=== PATIENT | male | born 1980 | race African-American/Black ===

== ENCOUNTER 2016-09-10 14:13 | Emergency (ER) | payer SELFPAY ==
[~2016-09-10] VITALS: Ht 180.3 cm; Wt 86.0 kg
[2016-09-10 14:14] VITALS: BP 112/64; PULSE 94; RESP 20; TEMP 98.4; O2SAT 99
--- NOTE | 2016-09-10 15:17 | PD ---
HPI Chief Complaint: Psychiatric Symptoms Time Seen by Provider: 15:11 Travel History International Travel<30 days: No Contact w/Intl Traveler<30days: No Traveled to known affect area: No History of Present Illness HPI 36-year-old black male presents to emergency department on a voluntary basis for psychological evaluation. The patient states that he has a history of mental illness. He was just released from incarceration 2 days ago after a period of time for battery. He states that he was supposed to follow up with [facility] for his mental health but has missed his appointment last month during his incarceration. He does not know what medications he supposed to be taking. He states that he has not taken medicine in some time. He claims that he has had ADHD as a child and had been on Ritalin. The patient also reports twisting his left knee earlier today. He admits to having suicidal thoughts. He alleges that he had taken a friend's gun and had considered shooting himself. He denies any homicidal ideation. No toxic ingestions. He does smoke cigarettes and drink alcohol on occasion. He states that he has not done any drugs since after being incarcerated. He is currently homeless. He has been on the streets since being released from half-way 2 days ago. PFSH Past Medical History Narrative Medical Psych disorder Hx Anticoagulant Therapy: No Cardiovascular Problems: No Chemotherapy: No Cerebrovascular Accident: No Diabetes: No Respiratory: No Tetanus Vaccination: < 5 Years Past Surgical History Surgical History: No Previous Surgery Social History Alcohol Use: Yes Tobacco Use: Yes Substance Use: No (not in the last month.) Allergies-Medications (Allergen,Severity, Reaction): Coded Allergies: No Known Allergies (Unverified , 09/10/16) Reported Meds & Prescriptions Reported Meds & Active Scripts Active No Active Prescriptions or Reported Medications Review of Systems Except as stated in HPI: all other systems reviewed are Neg Musculoskeletal: Positive: Arthralgias, Limited ROM, Pain, No: Myalgias, Weakness, Edema Psychiatric: Positive: Depression, Suicidal Ideations, Mood Disorder, No: Anxiety, Disorder of Thought, Substance Abuse, Homicidal Ideation Physical Exam Narrative GENERAL: Well-nourished, well-developed patient. SKIN: Warm and dry. HEAD: Normocephalic and atraumatic. EYES: No scleral icterus. No injection or drainage. ENT: No nasal drainage noted. Mucous membranes pink. Airway patent. NECK: Supple, trachea midline. Moves head freely without obvious discomfort. CARDIOVASCULAR: Regular rate and rhythm without murmurs, gallops, or rubs. RESPIRATORY: Breath sounds equal bilaterally. No accessory muscle use. GASTROINTESTINAL: Abdomen soft, non-tender, nondistended. EXTREMITIES: No cyanosis or edema. Examination of the left lower extremity reveals soft tissue tenderness to the left knee. There is no joint effusion. He is able to fully extend and flex his knee. No medial or lateral collateral ligament instability. No anterior posterior draw. The patient is up and ambulatory with a mildly antalgic gait. The right lower extremity as well as upper extremities are unremarkable. BACK: Nontender without obvious deformity. No CVA tenderness. NEURO: Patient is alert and oriented. no sensorimotor deficits. Nonfocal. Normal speech. PSYCH: No delusions. No auditory or visual hallucinations. Data Data Last Documented VS Vital Signs Date Time Temp Pulse Resp B/P Pulse Ox O2 Delivery O2 Flow Rate FiO2 09/10/16 15:54 79 18 120/68 100 Room Air 09/10/16 14:14 98.4 Orders Complete Blood Count With Diff (09/10/16 15:11) Comprehensive Metabolic Panel (09/10/16 15:11) Psych Screen (09/10/16 15:11) Drug Screen, Random Urine (09/10/16 15:11) Alcohol (Ethanol) (09/10/16 15:11) Salicylates (Aspirin) (09/10/16 15:11) Tylenol (Acetaminophen) (09/10/16 15:11) Ibuprofen (Motrin) (09/10/16 15:30) Labs Laboratory Tests Test 09/10/16 09/10/16 15:45 15:50 Urine Opiates Screen NEG Urine Barbiturates Screen NEG Urine Amphetamines Screen NEG Urine Benzodiazepines Screen NEG Urine Cocaine Screen POS Urine Cannabinoids Screen NEG White Blood Count 4.3 TH/MM3 Red Blood Count 4.38 MIL/MM3 Hemoglobin 13.5 GM/DL Hematocrit 40.3 % Mean Corpuscular Volume 92.0 FL Mean Corpuscular Hemoglobin 30.8 PG Mean Corpuscular Hemoglobin 33.5 % Concent Red Cell Distribution Width 14.5 % Platelet Count 203 TH/MM3 Mean Platelet Volume 9.1 FL Neutrophils (%) (Auto) 44.4 % Lymphocytes (%) (Auto) 39.5 % Monocytes (%) (Auto) 15.1 % Eosinophils (%) (Auto) 0.8 % Basophils (%) (Auto) 0.2 % Neutrophils # (Auto) 1.9 TH/MM3 Lymphocytes # (Auto) 1.7 TH/MM3 Monocytes # (Auto) 0.6 TH/MM3 Eosinophils # (Auto) 0.0 TH/MM3 Basophils # (Auto) 0.0 TH/MM3 CBC Comment DIFF FINAL Differential Comment Sodium Level 139 MEQ/L Potassium Level 4.1 MEQ/L Chloride Level 104 MEQ/L Carbon Dioxide Level 28.6 MEQ/L Anion Gap 6 MEQ/L Blood Urea Nitrogen 17 MG/DL Creatinine 1.07 MG/DL Estimat Glomerular Filtration 96 ML/MIN Rate Random Glucose 76 MG/DL Calcium Level 8.9 MG/DL Total Bilirubin 0.5 MG/DL Aspartate Amino Transf 29 U/L (AST/SGOT) Alanine Aminotransferase 37 U/L (ALT/SGPT) Alkaline Phosphatase 160 U/L Total Protein 8.0 GM/DL Albumin 3.9 GM/DL Salicylates Level LESS THAN 1.7 MG/DL Acetaminophen Level LESS THAN 2.0 MCG/ML Ethyl Alcohol Level LESS THAN 3 MG/DL MDM Medical Decision Making Medical Screen Exam Complete: Yes Emergency Medical Condition: Yes Medical Record Reviewed: Yes Interpretation(s) Laboratory Tests Test 09/10/16 09/10/16 15:45 15:50 Urine Opiates Screen NEG Urine Barbiturates Screen NEG Urine Amphetamines Screen NEG Urine Benzodiazepines Screen NEG Urine Cocaine Screen POS Urine Cannabinoids Screen NEG White Blood Count 4.3 TH/MM3 Red Blood Count 4.38 MIL/MM3 Hemoglobin 13.5 GM/DL Hematocrit 40.3 % Mean Corpuscular Volume 92.0 FL Mean Corpuscular Hemoglobin 30.8 PG Mean Corpuscular Hemoglobin 33.5 % Concent Red Cell Distribution Width 14.5 % Platelet Count 203 TH/MM3 Mean Platelet Volume 9.1 FL Neutrophils (%) (Auto) 44.4 % Lymphocytes (%) (Auto) 39.5 % Monocytes (%) (Auto) 15.1 % Eosinophils (%) (Auto) 0.8 % Basophils (%) (Auto) 0.2 % Neutrophils # (Auto) 1.9 TH/MM3 Lymphocytes # (Auto) 1.7 TH/MM3 Monocytes # (Auto) 0.6 TH/MM3 Eosinophils # (Auto) 0.0 TH/MM3 Basophils # (Auto) 0.0 TH/MM3 CBC Comment DIFF FINAL Differential Comment Sodium Level 139 MEQ/L Potassium Level 4.1 MEQ/L Chloride Level 104 MEQ/L Carbon Dioxide Level 28.6 MEQ/L Anion Gap 6 MEQ/L Blood Urea Nitrogen 17 MG/DL Creatinine 1.07 MG/DL Estimat Glomerular Filtration 96 ML/MIN Rate Random Glucose 76 MG/DL Calcium Level 8.9 MG/DL Total Bilirubin 0.5 MG/DL Aspartate Amino Transf 29 U/L (AST/SGOT) Alanine Aminotransferase 37 U/L (ALT/SGPT) Alkaline Phosphatase 160 U/L Total Protein 8.0 GM/DL Albumin 3.9 GM/DL Salicylates Level LESS THAN 1.7 MG/DL Acetaminophen Level LESS THAN 2.0 MCG/ML Ethyl Alcohol Level LESS THAN 3 MG/DL Differential Diagnosis MDM: High Differential diagnoses: Schizophrenia, schizoaffective disorder, bipolar, anxiety, depression, adjustment reaction, mood disorder NOS, ODD, depressive disorder NOS, dementia, dementia with agitation, psychosis NOS, substance induced mood disorder, intermittent explosive disorder, Asperger syndrome, infection,electrolyte abnormality, left knee sprain, malingering. Narrative Course Mental health screening discussed with the patient. Psychiatric screen ordered. The patient is given Motrin 800 mg by mouth. X-rays of the knee is not required for medical clearance today. The history and exam is inconsistent with any acute bony injury. The patient was ambulatory. This is medical clearance exam, depression, left knee sprain, substance abuse Diagnosis Primary Impression: medical clearance exam Additional Impressions: Depression Qualified Code: F32.9 - Depression, unspecified depression type Left knee sprain Qualified Code: S83.92XA - Sprain of left knee, unspecified ligament, initial encounter Substance abuse Scripts No Active Prescriptions or Reported Meds Condition: Jose Suh Sep 10, 2016 15:17
[2016-09-10] MEDS ORDERED: IBUPROFEN 800 MG TAB PO ONE (15:30)
[2016-09-10 15:54] VITALS: BP 120/68; PULSE 79; RESP 18; O2SAT 100
[2016-09-10 16:33] LABS: AUTOMATED NEUTROPHIL # 1.9 TH/MM3 (1.8-7.7); BASOPHIL % 0.2 % (0.0-2.0); EOSINOPHIL % 0.8 % (0.0-4.0); HEMATOCRIT 40.3 % (39.0-51.0); HEMO FLAGS DIFF FINAL; LYMPH % 39.5 % (9.0-44.0); LYMPHOCYTE # 1.7 TH/MM3 (1.0-4.8); MEAN CORPUSCULAR HEMOGLOBIN 30.8 PG (27.0-34.0); MEAN CORPUSCULAR HGB CONC 33.5 % (32.0-36.0); MONO % 15.1 % (0.0-8.0); NEUT % 44.4 % (16.0-70.0); PLATELET COUNT 203 TH/MM3 (150-450); RED BLOOD COUNT 4.38 MIL/MM3 (4.50-5.90); RED CELL DISTRIBUTION WIDTH 14.5 % (11.6-17.2); WHITE BLOOD COUNT 4.3 TH/MM3 (4.0-11.0)
[2016-09-10 16:50] LABS: AMPHETAMINE, URINE NEG (NEG); BARBITURATES, URINE NEG (NEG); COCAINE, URINE POS (NEG)
[2016-09-10 16:53] LABS: ALT (GPT) 37 U/L (12-78); ANION GAP 6 MEQ/L (5-15); AST (GOT) 29 U/L (15-37); BICARBONATE 28.6 MEQ/L (21.0-32.0); BLOOD UREA NITROGEN 17 MG/DL (7-18); CHLORIDE 104 MEQ/L (98-107); GLOMERULAR FILTRATION RATE 96 ML/MIN (>89); POTASSIUM 4.1 MEQ/L (3.5-5.1); SODIUM (NA) 139 MEQ/L (136-145)
[2016-09-10 16:54] LABS: ALKALINE PHOSPHATASE 160 U/L (45-117); TOTAL BILIRUBIN ADULT 0.5 MG/DL (0.2-1.0)
[2016-09-10 16:58] LABS: ACETAMINOPHEN LESS THAN 2.0 MCG/ML (10.0-30.0)
[2016-09-10 18:00] VITALS: BP 118/68; PULSE 77; RESP 18; TEMP 98.2; O2SAT 95
[2016-09-11] MEDS ORDERED: THIO10TA PO (01:35)
[2016-09-11] MEDS ORDERED: CLON0.1T PO (01:36)
[2016-09-11 02:40] VITALS: BP 110/58; PULSE 87; RESP 18; O2SAT 97
[2016-09-11 06:24] VITALS: BP 112/71; PULSE 64; RESP 18
[2016-09-11 10:45] VITALS: BP 97/52; PULSE 89; RESP 18; O2SAT 97
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
== END 2016-09-11 14:00 ==
LOC: MERGE 14:13 → NEPD 14:13 → NEPJ 09-11 14:00
DX: S83.92XA Sprain of unspecified site of left knee, initial encounter (principal); F32.9 Major depressive disorder, single episode, unspecified; Z72.0 Tobacco use; Z59.0 Homelessness; R45.851 Suicidal ideations; X50.1XXA Overexertion from prolonged static or awkward postures, initial encounter; Y93.9 Activity, unspecified; Y92.9 Unspecified place or not applicable; Y99.9 Unspecified external cause status
CPT/HCPCS: 80053; 80307; 85025; 99285

== ENCOUNTER 2016-10-06 14:39 | Inpatient (IN) | payer OTHER ==
[~2016-10-06] VITALS: Ht 180.3 cm; Wt 89.8 kg
[~2016-10-06 14:39] MED LIST: CLON0.1T PO; THIO10TA PO
[2016-10-06 15:04] VITALS: BP 116/64; PULSE 103; TEMP 98.6; O2SAT 97
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
[2016-10-06] MEDS ORDERED: LORazepam 2 MG/ML VIAL IM ONE (15:30)
[2016-10-06 17:06] LABS: AUTOMATED NEUTROPHIL # 2.9 TH/MM3 (1.8-7.7); BASOPHIL % 0.5 % (0.0-2.0); EOSINOPHIL # 0.1 TH/MM3 (0-0.4); EOSINOPHIL % 0.9 % (0.0-4.0); HEMATOCRIT 37.6 % (39.0-51.0); HEMO FLAGS DIFF FINAL; LYMPH % 38.4 % (9.0-44.0); LYMPHOCYTE # 2.2 TH/MM3 (1.0-4.8); MEAN CELL VOLUME 91.7 FL (80.0-100.0); MEAN CORPUSCULAR HEMOGLOBIN 30.5 PG (27.0-34.0); MEAN CORPUSCULAR HGB CONC 33.2 % (32.0-36.0); MONO % 9.8 % (0.0-8.0); NEUT % 50.4 % (16.0-70.0); PLATELET COUNT 260 TH/MM3 (150-450); RED CELL DISTRIBUTION WIDTH 14.2 % (11.6-17.2); WHITE BLOOD COUNT 5.8 TH/MM3 (4.0-11.0)
[2016-10-06 17:53] LABS: ALKALINE PHOSPHATASE 157 U/L (45-117); TOTAL BILIRUBIN ADULT 0.2 MG/DL (0.2-1.0)
[2016-10-06 18:12] LABS: ACETAMINOPHEN LESS THAN 2.0 MCG/ML (10.0-30.0); ALT (GPT) 20 U/L (12-78); ANION GAP 10 MEQ/L (5-15); AST (GOT) 29 U/L (15-37); BICARBONATE 25.4 MEQ/L (21.0-32.0); BLOOD UREA NITROGEN 11 MG/DL (7-18); CHLORIDE 107 MEQ/L (98-107); GLOMERULAR FILTRATION RATE 92 ML/MIN (>89); POTASSIUM 3.7 MEQ/L (3.5-5.1); SODIUM (NA) 142 MEQ/L (136-145)
[2016-10-06 22:27] VITALS: BP 114/63; PULSE 92; RESP 18; O2SAT 97
[2016-10-06] MEDS ORDERED: ALUMINUM/MAGNESIUM/SIMETH 30 ML CUP PO PRN (23:45)
[2016-10-06] MEDS ORDERED: ACETAMINOPHEN 325 MG TAB PO PRN (23:45)
[2016-10-06] MEDS ORDERED: LORazepam 1 MG TAB PO PRN (23:45)
[2016-10-06] MEDS ORDERED: LORazepam 2 MG/ML VIAL IM PRN (23:45)
[2016-10-06] MEDS ORDERED: MAGNESIUM HYDROXIDE SUSP 30 ML CUP PO PRN (23:45)
[2016-10-07 02:00] VITALS: BP 140/73; PULSE 82; RESP 19; O2SAT 99
[2016-10-07 06:00] VITALS: BP 120/86; PULSE 68; RESP 18; O2SAT 98
[2016-10-07 07:31] LABS: AMPHETAMINE, URINE NEG (NEG); BARBITURATES, URINE NEG (NEG); COCAINE, URINE POS (NEG)
[2016-10-07 10:30] VITALS: BP 130/70; PULSE 100; RESP 18
[2016-10-07 12:29] VITALS: BP 115/68; PULSE 111; RESP 18; TEMP 98.4; O2SAT 98
--- NOTE | 2016-10-07 15:43 | EKG ---
Date Performed: 10/06/2016 Time Performed: 15:10:10 PTAGE: 36 years EKG: Sinus rhythm EARLY REPOLARIZATION BORDERLINE ECG NO PREVIOUS TRACING DOCTOR: Joaquin Kwon Interpretating Date/Time 11/30/2016 09:42:04
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
[2016-10-07] MEDS ORDERED: HALOPERIDOL 5 MG TAB PO PRN (16:45)
[2016-10-07] MEDS ORDERED: hydrOXYzine HCL 50 MG TAB PO PRN (16:45)
[2016-10-07] MEDS ORDERED: HALOPERIDOL LACTATE 5 MG/ML AMP IM PRN (16:45)
[2016-10-07] MEDS ORDERED: FLUMAZENIL 0.5 MG/5 ML VIAL IV PUSH PRN (16:45)
[2016-10-07] MEDS ORDERED: BENZTROPINE MESYLATE 1 MG TAB PO PRN (16:45)
[2016-10-07] MEDS ORDERED: LORazepam 2 MG/ML VIAL IV PUSH PRN ×4 (16:45)
[2016-10-07] MEDS ORDERED: LORazepam 2 MG TAB PO PRN (16:45)
[2016-10-07] MEDS ORDERED: BENZTROPINE MESYLATE 2 MG/2 ML VIAL IM PRN (16:45)
[2016-10-07] MEDS ORDERED: LORazepam 1 MG TAB PO PRN (16:45)
[2016-10-07 18:11] VITALS: BP 133/65; PULSE 92; RESP 18; TEMP 98.1; O2SAT 97
[2016-10-07] MEDS: OLANZapine 10 MG TAB PO SCH (21:00)
[2016-10-07] MEDS ORDERED: diphenhydrAMINE HCL 50 MG CAP PO PRN (21:00)
[2016-10-08 06:03] VITALS: BP 128/77; PULSE 76; RESP 18; TEMP 97.2; O2SAT 97
[2016-10-08] MEDS: THIAMINE HCL 100 MG TAB PO SCH (08:30)
[2016-10-08] MEDS: FOLIC ACID 1 MG TAB PO SCH (08:30)
--- NOTE | 2016-10-08 14:26 | HHI.PYPN ---
Subjective Remarks Patient was seen and case discussed with nursing. Patient is guarded with poor insight. Apathetic during the interview. Minimizes his drug use. Is alert and oriented 4, denies nausea or vomiting, denies suicidal ideation intent or plan. No tremors noted. Mood is "pretty good." Objective Alert: Yes Elmer: Person, Place, Date, Situation Mood: Oppositional Affect: Blunted Memory Intact: Comment (not formally tested) Hallucinations: Auditory (denies) Delusions: No Delusion Type: Other (none elicited) Suicidal: Ideation (denies) Homicidal: Ideation (denies) Insight/Judgment Poor Vitals/IOs Vital Signs Date Time Temp Pulse Resp B/P Pulse Ox O2 Delivery O2 Flow Rate FiO2 10/08/16 06:03 97.2 76 18 128/77 97 10/07/16 10:30 Room Air Assessment & Plan Problem List: (1) Adjustment disorder with mixed disturbance of emotions and conduct ICD Code: F43.25 (2) Polysubstance abuse ICD Code: F19.10 Assessment & Plan Continue current treatment plan Justification for Cont. Inpt. Patient will decompensate in a less restrictive setting Request HC Surrog/Guard Advoc?: No Otilio Turner DO October 08, 2016 14:26
[2016-10-08] MEDS: OLANZapine 10 MG TAB PO SCH (21:30)
[2016-10-09 05:50] VITALS: BP 121/58; PULSE 81; RESP 18; TEMP 97.6; O2SAT 97
[2016-10-09] MEDS: FOLIC ACID 1 MG TAB PO SCH (08:27)
[2016-10-09] MEDS: THIAMINE HCL 100 MG TAB PO SCH (08:28)
--- NOTE | 2016-10-09 12:27 | HHI.PYPN ---
Subjective Remarks Patient seen and case discussed with nursing. Patient remains flat and apathetic for the interview. Continues to deny psychotic and mood symptoms. Is very perseverative on discharge. Compliant with medications Objective Alert: Yes [place]: Person, Place, Date, Situation Mood: Oppositional Affect: Manic, Flat Memory Intact: Comment (not formally tested) Hallucinations: Auditory (denies) Delusions: No Delusion Type: Other (none elicited) Suicidal: Ideation (denies) Homicidal: Ideation (denies) Insight/Judgment Poor Vitals/IOs Vital Signs Date Time Temp Pulse Resp B/P Pulse Ox O2 Delivery O2 Flow Rate FiO2 10/09/16 05:50 97.6 81 18 121/58 97 10/07/16 10:30 Room Air Assessment & Plan Problem List: (1) Adjustment disorder with mixed disturbance of emotions and conduct ICD Code: F43.25 (2) Polysubstance abuse ICD Code: F19.10 Assessment & Plan Continue current treatment plan Justification for Cont. Inpt. Patient will decompensate in a less restrictive setting Request HC Surrog/Guard Advoc?: No Otilio Turner DO October 09, 2016 12:27
[2016-10-09 18:15] VITALS: BP 148/87; PULSE 65; RESP 16; TEMP 98.9; O2SAT 95
[2016-10-09] MEDS: OLANZapine 10 MG TAB PO SCH (21:07)
[2016-10-10 06:09] VITALS: BP 122/74; PULSE 87; RESP 18; TEMP 98.1; O2SAT 98
[2016-10-10] MEDS ORDERED: OLAN10TA PO (10:22)
[2016-10-10] MEDS ORDERED: VITA100T2 PO (10:22)
[2016-10-10] MEDS ORDERED: FOLI1TAB4 PO (10:22)
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
[2016-10-10] MEDS: THIAMINE HCL 100 MG TAB PO SCH (10:34)
[2016-10-10] MEDS: FOLIC ACID 1 MG TAB PO SCH (10:34)
== END 2016-10-10 15:15 | disposition home or self-care (01) | DRG 897 ==
LOC: NEPD 14:39 → H270 10-07 11:07 → MERGE 10-07 11:07
PROVIDERS: ADMIT Psychiatry & Neurology Psychiatry; ATTEND Psychiatry & Neurology Psychiatry
DX: F19.14 Other psychoactive substance abuse with psychoactive substance-induced mood disorder (principal); F10.10 Alcohol abuse, uncomplicated; R45.851 Suicidal ideations; F43.25 Adjustment disorder with mixed disturbance of emotions and conduct; F20.9 Schizophrenia, unspecified; F17.210 Nicotine dependence, cigarettes, uncomplicated; F31.9 Bipolar disorder, unspecified; Y90.4 Blood alcohol level of 80-99 mg/100 ml; Z59.0 Homelessness; Z91.5 Personal history of self-harm
CPT/HCPCS: 80053; 80307; 85025; 93005; 96372; J2060; Q0163

== ENCOUNTER 2016-10-13 16:05 | Emergency (ER) | payer SELFPAY ==
[~2016-10-13] VITALS: Ht 180.3 cm; Wt 91.0 kg
[~2016-10-13 16:05] MED LIST changes: -CLON0.1T PO; +FOLI1TAB4 PO; +OLAN10TA PO; -THIO10TA PO; +VITA100T2 PO
[2016-10-13 16:16] VITALS: BP 123/76; PULSE 90; RESP 20; TEMP 98.8; O2SAT 96
--- NOTE | 2016-10-13 16:30 | PD ---
Physical Exam Date Seen by Provider: October 13, 2016 Time Seen by Provider: 16:30 Narrative Pt states he took too much of his psych meds, currently feeling suicidal. He originally came in with abdominal pain which has resolved. He has his meds with him. VSS, awaiting bed placement. Data Data Last Documented VS Vital Signs Date Time Temp Pulse Resp B/P Pulse Ox O2 Delivery O2 Flow Rate FiO2 10/13/16 16:16 98.8 90 20 123/76 96 Room Air MDM Supervised Visit with KARINA: No Scripts No Active Prescriptions or Reported Meds Susan Elam October 13, 2016 16:30
[2016-10-13 16:46] VITALS: RESP 18; O2SAT 99
--- NOTE | 2016-10-13 16:54 | PD ---
HPI Chief Complaint: Psychiatric Symptoms Time Seen by Provider: 16:35 Travel History International Travel<30 days: No Contact w/Intl Traveler<30days: No Traveled to known affect area: No History of Present Illness HPI This is a 36-year-old male who reports a history of paranoid schizophrenia. He presents requesting psychiatric evaluation. He reports that today he has been feeling increasingly depressed and suicidal. Specifically he has been having thoughts of walking out in front of traffic. He feels that his psychiatric medication is "messing with my head." The patient reports that he was recently started on olanzapine by psychiatrist Dr. Flores. Specifically he says that he started today and does not like the way that it is making him feel. He denies any drug or alcohol use, homicidal ideation, auditory or visual hallucinations. He has no other complaints at this time. PFSH Past Medical History Bipolar Disorder: Yes Anxiety: Yes Diminished Hearing: No Psychiatric: Yes Schizophrenia: Yes Tetanus Vaccination: < 5 Years Influenza Vaccination: No Past Surgical History Surgical History: No Previous Surgery Social History Alcohol Use: Yes Tobacco Use: Yes Substance Use: Yes ([facility]) Allergies-Medications (Allergen,Severity, Reaction): Coded Allergies: No Known Allergies (Verified , 10/13/16) Reported Meds & Prescriptions Reported Meds & Active Scripts Active Reported Folic Acid 5 Mg Cap 1 Mg PO DAILY Vitamin B-1 (Thiamine HCl) 100 Mg Tab 100 Mg PO DAILY Chlorpromazine (Chlorpromazine HCl) 100 Mg Tab 100 Mg PO HS PRN Olanzapine 20 Mg Tab 20 Mg PO HS Review of Systems Except as stated in HPI: all other systems reviewed are Neg Physical Exam Narrative GENERAL: Well-developed well-nourished male in no acute distress] SKIN: Warm and dry. HEAD: Atraumatic. Normocephalic. EYES: Pupils equal and round. No scleral icterus. No injection or drainage. ENT: No nasal bleeding or discharge. Mucous membranes pink and moist. NECK: Trachea midline. No JVD. CARDIOVASCULAR: Regular rate and rhythm. No murmur appreciated. RESPIRATORY: No accessory muscle use. Clear to auscultation. Breath sounds equal bilaterally. GASTROINTESTINAL: Abdomen soft, non-tender, nondistended. Hepatic and splenic margins not palpable. MUSCULOSKELETAL: No obvious deformities. No edema NEUROLOGICAL: Awake and alert. No obvious cranial nerve deficits. Motor grossly within normal limits. Normal speech. PSYCHIATRIC: Insight and judgment appear limited. He appears anxious. Data Data Last Documented VS Vital Signs Date Time Temp Pulse Resp B/P Pulse Ox O2 Delivery O2 Flow Rate FiO2 10/13/16 16:46 18 99 Room Air 10/13/16 16:41 89 10/13/16 16:16 98.8 123/76 Orders Complete Blood Count With Diff (10/13/16 16:32) Comprehensive Metabolic Panel (10/13/16 16:32) Oximetry (10/13/16 16:32) Ecg Monitoring (10/13/16 16:32) Psych Screen (10/13/16 16:32) Drug Screen, Random Urine (10/13/16 16:32) Alcohol (Ethanol) (10/13/16 16:32) Salicylates (Aspirin) (10/13/16 16:32) Tylenol (Acetaminophen) (10/13/16 16:32) Lipase (10/13/16 16:46) Labs Laboratory Tests Test 10/13/16 10/13/16 16:50 18:10 White Blood Count 5.6 TH/MM3 Red Blood Count 4.28 MIL/MM3 Hemoglobin 13.0 GM/DL Hematocrit 39.7 % Mean Corpuscular Volume 92.8 FL Mean Corpuscular Hemoglobin 30.5 PG Mean Corpuscular Hemoglobin 32.9 % Concent Red Cell Distribution Width 14.3 % Platelet Count 215 TH/MM3 Mean Platelet Volume 9.1 FL Neutrophils (%) (Auto) 62.1 % Lymphocytes (%) (Auto) 26.2 % Monocytes (%) (Auto) 10.9 % Eosinophils (%) (Auto) 0.3 % Basophils (%) (Auto) 0.5 % Neutrophils # (Auto) 3.5 TH/MM3 Lymphocytes # (Auto) 1.5 TH/MM3 Monocytes # (Auto) 0.6 TH/MM3 Eosinophils # (Auto) 0.0 TH/MM3 Basophils # (Auto) 0.0 TH/MM3 CBC Comment DIFF FINAL Differential Comment Sodium Level 138 MEQ/L Potassium Level 3.9 MEQ/L Chloride Level 102 MEQ/L Carbon Dioxide Level 29.1 MEQ/L Anion Gap 7 MEQ/L Blood Urea Nitrogen 11 MG/DL Creatinine 1.18 MG/DL Estimat Glomerular Filtration 86 ML/MIN Rate Random Glucose 87 MG/DL Calcium Level 9.1 MG/DL Total Bilirubin 0.5 MG/DL Aspartate Amino Transf 30 U/L (AST/SGOT) Alanine Aminotransferase 28 U/L (ALT/SGPT) Alkaline Phosphatase 155 U/L Total Protein 8.0 GM/DL Albumin 3.9 GM/DL Lipase 76 U/L Salicylates Level 3.4 MG/DL Acetaminophen Level LESS THAN 2.0 MCG/ML Ethyl Alcohol Level LESS THAN 3 MG/DL Urine Opiates Screen NEG Urine Barbiturates Screen NEG Urine Amphetamines Screen NEG Urine Benzodiazepines Screen NEG Urine Cocaine Screen POS Urine Cannabinoids Screen POS MDM Medical Decision Making Medical Screen Exam Complete: Yes Emergency Medical Condition: Yes Medical Record Reviewed: Yes Differential Diagnosis Schizophrenia, medication reaction, acute psychosis, major depressive disorder, substance induced mood disorder Narrative Course 36-year-old male with history of paranoid schizophrenia presents requesting psychiatric evaluation of depression, thoughts of suicide. Mental health screening discussed with the patient. Psychiatric screen ordered. Drug screen is positive for cocaine and cannabinoids. Lab work is otherwise unremarkable. The patient is medically cleared for psychiatric disposition. Diagnosis Primary Impression: Polysubstance abuse Additional Impression: Suicidal ideation Johnnie Sands October 13, 2016 16:54
[2016-10-13] MEDS ORDERED: CHLO100T2 PO (16:57)
[2016-10-13] MEDS ORDERED: FOLI5CAP PO (16:57)
[2016-10-13] MEDS ORDERED: OLAN20TA PO (16:57)
[2016-10-13] MEDS ORDERED: VITA100T54 PO (16:57)
[2016-10-13 17:20] LABS: AUTOMATED NEUTROPHIL # 3.5 TH/MM3 (1.8-7.7); BASOPHIL % 0.5 % (0.0-2.0); EOSINOPHIL % 0.3 % (0.0-4.0); HEMATOCRIT 39.7 % (39.0-51.0); HEMO FLAGS DIFF FINAL; LYMPH % 26.2 % (9.0-44.0); LYMPHOCYTE # 1.5 TH/MM3 (1.0-4.8); MEAN CELL VOLUME 92.8 FL (80.0-100.0); MEAN CORPUSCULAR HEMOGLOBIN 30.5 PG (27.0-34.0); MEAN CORPUSCULAR HGB CONC 32.9 % (32.0-36.0); MONO % 10.9 % (0.0-8.0); NEUT % 62.1 % (16.0-70.0); PLATELET COUNT 215 TH/MM3 (150-450); RED BLOOD COUNT 4.28 MIL/MM3 (4.50-5.90); RED CELL DISTRIBUTION WIDTH 14.3 % (11.6-17.2); WHITE BLOOD COUNT 5.6 TH/MM3 (4.0-11.0)
[2016-10-13 17:54] LABS: ANION GAP 7 MEQ/L (5-15); AST (GOT) 30 U/L (15-37); BICARBONATE 29.1 MEQ/L (21.0-32.0); BLOOD UREA NITROGEN 11 MG/DL (7-18); CHLORIDE 102 MEQ/L (98-107); GLOMERULAR FILTRATION RATE 86 ML/MIN (>89); POTASSIUM 3.9 MEQ/L (3.5-5.1); SODIUM (NA) 138 MEQ/L (136-145)
[2016-10-13 17:58] LABS: ACETAMINOPHEN LESS THAN 2.0 MCG/ML (10.0-30.0); ALKALINE PHOSPHATASE 155 U/L (45-117); ALT (GPT) 28 U/L (12-78); TOTAL BILIRUBIN ADULT 0.5 MG/DL (0.2-1.0)
[2016-10-13 18:29] LABS: AMPHETAMINE, URINE NEG (NEG); BARBITURATES, URINE NEG (NEG); COCAINE, URINE POS (NEG)
[2016-10-13 19:16] VITALS: BP 131/80; PULSE 97; RESP 18; O2SAT 97
[2016-10-14 02:25] VITALS: BP 117/75; PULSE 75; RESP 17; O2SAT 99
[2016-10-14 06:00] VITALS: BP 122/75; PULSE 65; RESP 18; O2SAT 98
[2016-10-14 10:00] VITALS: BP 121/57; PULSE 82; O2SAT 91
--- NOTE | 2016-10-14 11:15 | PD ---
History of Present Illness Chief Complaint: Psychiatric Symptoms Time Seen by Provider: 10:55 Travel History International Travel<30 Days: No Contact w/Intl Traveler<30days: No Known affected area: No Legal Status Legal Status: Voluntary History of Present Illness: History of Present Illness HPI This is a 36-year-old male with a self reported history of bipolar/ schizophrenia who presents to Ed on a voluntary status requesting a psychiatric evaluation. As per ED documentation " He reports that today he has been feeling increasingly depressed and suicidal. Specifically he has been having thoughts of walking out in front of traffic. He feels that his psychiatric medication is "messing with my head." The patient reports that he was recently started on olanzapine by psychiatrist Dr. Flores. Specifically he says that he started today and does not like the way that it is making him feel. He denies any drug or alcohol use, homicidal ideation, auditory or visual hallucinations. He has no other complaints at this time." He has been maintained in J pod and presented no suicidality. Seen . Case discussed. EMR is reviewed. Patient was released from [facility] on October. As per that documentation the patient had in fact reported that the medication was working well for him. Patient is seen in J pod. Awake, alert and oriented. He is calm. Speech is clear and logical. He provides vague and conflicting information . Example He states that he has not taking his medication and then he states that he was having trouble with his medication. He also states that he is having trouble with his family and that he is worried over his mother who is in a snf. He does not appear to be reacting to internal stimuli at this time. The patient is requesting continued help with his" mental health." He is calm and cooperative until I begin to discuss discharge from J pod. He then becomes angry and states that he is not going to leave the hospital because he has no place to go. He begins to use profane language and to threaten this senior grant writer if he is discharged. He wants to speak " to the good doctor not you bitch". He doesn't' want to go back to his friend's house and he does not want to go to [facility] and states " I don't like those places". Not suicidal or homicidal. No psychosis. In terms of substance use he denies that he has used substance s but toxicology is positive for cocaine and cannabinoids. PFSH Past Medical History Bipolar Disorder: Yes Anxiety: Yes Diminished Hearing: No Psychiatric: Yes Schizophrenia: Yes Tetanus Vaccination: < 5 Years Influenza Vaccination: No Past Surgical History Surgical History: No Previous Surgery Psychiatric History Psychiatric History Hx Psychiatric Treatment: [facility] on October 07 until October 10, 2016 History of Inpatient Treatment: Yes Guns or firearms in home: No Social History Single with no children. Homeless. Tenth grade education. he is appealing his disability claim for social security benefits. Hx Alcohol Use: Yes Hx Tobacco Use: Yes Hx Substance Use: Yes Substance Use Type: Alcohol, Marijuana, Cocaine Hx of Substance Use Treatment: Yes Family Psychiatric History None reported Allergies-Medications (Allergen,Severity, Reaction): Coded Allergies: No Known Allergies (Verified , 10/13/16) Reported Meds & Prescriptions Reported Meds & Active Scripts Active Reported Folic Acid 5 Mg Cap 1 Mg PO DAILY Vitamin B-1 (Thiamine HCl) 100 Mg Tab 100 Mg PO DAILY Chlorpromazine (Chlorpromazine HCl) 100 Mg Tab 100 Mg PO HS PRN Olanzapine 20 Mg Tab 20 Mg PO HS Review of Systems Except as stated in HPI: all other systems reviewed are Neg Exam Alert: Yes [place]: Person (ox4) Mood: Angry Affect: Other (congruent to mood) Speech: Clear, Logical Eye Contact: Normal Memory Intact: Comment (not impaired) Hallucinations: Other (negative) Delusions: No Suicidal: Ideation (neagtive) Homicidal: Ideation (Negative) Insight/Judgement Poor. Poor MDM Medical Decision Making Medical Record Reviewed: Yes Assessment/Plan 36 year old male on a voluntary status after he reported feeling suicidal after he took his medications. Patient at this time does not present any acute psychiatric symptomatology. His symptoms and complaints are inconsistent , vague and conflicting. He does not appear to be responding to internal stimuli. He is threatening at one point if he does not get to stay here in J pod but then calms down when he makes requests such as bus transportation vouchers. Patient appears to be malingering his symptoms and displays strong antisocial personality threats. At this time it is determined that he does not present acute risk to self or others although there exists a possibility that he would act out in an effort to meet his needs. Discharge. Follow up with [facility]. Orders Complete Blood Count With Diff (10/13/16 16:32) Comprehensive Metabolic Panel (10/13/16 16:32) Oximetry (10/13/16 16:32) Ecg Monitoring (10/13/16 16:32) Psych Screen (10/13/16 16:32) Drug Screen, Random Urine (10/13/16 16:32) Alcohol (Ethanol) (10/13/16 16:32) Salicylates (Aspirin) (10/13/16 16:32) Tylenol (Acetaminophen) (10/13/16 16:32) Lipase (10/13/16 16:46) Diet Regular Basic (10/14/16 Breakfast) Diet Regular Basic (10/14/16 Lunch) Results Vital Signs Date Time Temp Pulse Resp B/P Pulse Ox O2 Delivery O2 Flow Rate FiO2 10/14/16 10:00 82 121/57 91 10/14/16 09:57 82 18 10/14/16 06:00 65 18 122/75 98 Room Air 10/14/16 02:25 75 17 117/75 99 Room Air 10/13/16 19:16 97 18 131/80 97 Room Air 10/13/16 16:46 18 99 Room Air 10/13/16 16:41 89 18 10/13/16 16:16 98.8 90 20 123/76 96 Room Air Laboratory Tests Test 10/13/16 10/13/16 16:50 18:10 White Blood Count 5.6 Red Blood Count 4.28 Hemoglobin 13.0 Hematocrit 39.7 Mean Corpuscular Volume 92.8 Mean Corpuscular Hemoglobin 30.5 Mean Corpuscular Hemoglobin 32.9 Concent Red Cell Distribution Width 14.3 Platelet Count 215 Mean Platelet Volume 9.1 Neutrophils (%) (Auto) 62.1 Lymphocytes (%) (Auto) 26.2 Monocytes (%) (Auto) 10.9 Eosinophils (%) (Auto) 0.3 Basophils (%) (Auto) 0.5 Neutrophils # (Auto) 3.5 Lymphocytes # (Auto) 1.5 Monocytes # (Auto) 0.6 Eosinophils # (Auto) 0.0 Basophils # (Auto) 0.0 CBC Comment DIFF FINAL Differential Comment Sodium Level 138 Potassium Level 3.9 Chloride Level 102 Carbon Dioxide Level 29.1 Anion Gap 7 Blood Urea Nitrogen 11 Creatinine 1.18 Estimat Glomerular Filtration 86 Rate Random Glucose 87 Calcium Level 9.1 Total Bilirubin 0.5 Aspartate Amino Transf 30 (AST/SGOT) Alanine Aminotransferase 28 (ALT/SGPT) Alkaline Phosphatase 155 Total Protein 8.0 Albumin 3.9 Lipase 76 Salicylates Level 3.4 Acetaminophen Level LESS THAN 2.0 Ethyl Alcohol Level LESS THAN 3 Urine Opiates Screen NEG Urine Barbiturates Screen NEG Urine Amphetamines Screen NEG Urine Benzodiazepines Screen NEG Urine Cocaine Screen POS Urine Cannabinoids Screen POS Diagnosis Primary Impression: Polysubstance abuse Additional Impression: Substance induced mood disorder Psychiatrically Cleared: Yes Med/ Other Pt Specific Info: No Change to Meds Disposition: 01 DISCHARGE HOME Condition: Stable Problem Qualifiers Keri Gloria October 14, 2016 11:15
== END 2016-10-14 13:05 | disposition home or self-care (01) ==
LOC: NEPD 16:05 → NEPJ 10-14 13:05
DX: F19.10 Other psychoactive substance abuse, uncomplicated (principal); R45.851 Suicidal ideations; F19.14 Other psychoactive substance abuse with psychoactive substance-induced mood disorder
CPT/HCPCS: 80053; 80307; 83690; 85025; 99285

== ENCOUNTER 2016-10-15 23:50 | Emergency (ER) | payer SELFPAY ==
[~2016-10-15] VITALS: Ht 180.3 cm; Wt 90.0 kg
[~2016-10-15 23:50] MED LIST changes: +CHLO100T2 PO; +FOLI5CAP PO; +OLAN20TA PO; +VITA100T54 PO
--- NOTE | 2016-10-15 23:58 | PD ---
HPI Chief Complaint: ba Time Seen by Provider: 23:58 Travel History International Travel<30 days: No Contact w/Intl Traveler<30days: No Traveled to known affect area: No History of Present Illness HPI 36-year-old male with history of schizophrenia presents to emergency department under Saeed act for psychiatric evaluation. Per report, the patient stated that he wanted to end his life by jumping in front of a motor vehicle. Patient has been taking his medication per his report however states he's been increasingly depressed. Reports drinking alcohol. Denies any other illicit drugs however patient does have history of cocaine abuse. He is otherwise a poor historian.. He has no acute medical needs at this time. PFSH Past Medical History Hx Anticoagulant Therapy: No Autoimmune Disease: No Bipolar Disorder: Yes (PER PATIENT) Depression: Yes Cancer: No (per pt) Cardiovascular Problems: No (per pt) Chemotherapy: No Cerebrovascular Accident: No Diabetes: No (per pt ) Endocrine: No Headaches: No (per pt) Immune Disorder: No Musculoskeletal: No Psychiatric: Yes (Bipolar, Schizophrenia, and depression) Respiratory: No Schizophrenia: Yes Seizures: No (per pt) Social History Alcohol Use: Yes Tobacco Use: Yes Substance Use: Yes (CHIARA,COCAINE,THC ETOH) Allergies-Medications (Allergen,Severity, Reaction): Coded Allergies: No Known Allergies (Unverified , 09/10/16) Reported Meds & Prescriptions Reported Meds & Active Scripts Active Vitamin B-1 (Thiamine HCl) 100 Mg Tab 100 Mg PO DAILY 30 Days Folate (Folic Acid) 1 Mg Tab 1 Mg PO DAILY 30 Days Olanzapine 10 Mg Tab 10 Mg PO HS 15 Days Review of Systems ROS Limitations: Intoxication Except as stated in HPI: all other systems reviewed are Neg Physical Exam Exam Limitations: Intoxication Narrative GENERAL: Well-nourished, well-developed patient, ambulatory no acute distress SKIN: Focused skin assessment warm/dry. HEAD: Normocephalic. EYES: No scleral icterus. No injection or drainage. NECK: Supple, trachea midline. No JVD or lymphadenopathy. CARDIOVASCULAR: Tachycardic rate and rhythm without murmurs, gallops, or rubs. RESPIRATORY: Breath sounds equal bilaterally. No accessory muscle use. GASTROINTESTINAL: Abdomen soft, non-tender, nondistended. MUSCULOSKELETAL: No cyanosis, or edema. BACK: Nontender without obvious deformity. No CVA tenderness. Data Data Last Documented VS Vital Signs Date Time Temp Pulse Resp B/P Pulse Ox O2 Delivery O2 Flow Rate FiO2 10/16/16 00:40 98.4 104 16 115/54 97 Orders Complete Blood Count With Diff (10/15/16 23:58) Basic Metabolic Panel (Bmp) (10/15/16 23:58) Psych Screen (10/15/16 23:58) Drug Screen, Random Urine (10/15/16 23:58) Alcohol (Ethanol) (10/15/16 23:58) Labs Laboratory Tests Test 10/16/16 00:10 White Blood Count 5.6 TH/MM3 Red Blood Count 4.05 MIL/MM3 Hemoglobin 12.5 GM/DL Hematocrit 37.0 % Mean Corpuscular Volume 91.3 FL Mean Corpuscular Hemoglobin 30.9 PG Mean Corpuscular Hemoglobin 33.9 % Concent Red Cell Distribution Width 14.2 % Platelet Count 235 TH/MM3 Mean Platelet Volume 8.7 FL Neutrophils (%) (Auto) 38.7 % Lymphocytes (%) (Auto) 45.6 % Monocytes (%) (Auto) 14.5 % Eosinophils (%) (Auto) 0.7 % Basophils (%) (Auto) 0.5 % Neutrophils # (Auto) 2.2 TH/MM3 Lymphocytes # (Auto) 2.6 TH/MM3 Monocytes # (Auto) 0.8 TH/MM3 Eosinophils # (Auto) 0.0 TH/MM3 Basophils # (Auto) 0.0 TH/MM3 CBC Comment DIFF FINAL Differential Comment Sodium Level 143 MEQ/L Potassium Level 3.7 MEQ/L Chloride Level 109 MEQ/L Carbon Dioxide Level 24.9 MEQ/L Anion Gap 9 MEQ/L Blood Urea Nitrogen 15 MG/DL Creatinine 1.14 MG/DL Estimat Glomerular Filtration 89 ML/MIN Rate Random Glucose 123 MG/DL Calcium Level 8.2 MG/DL Ethyl Alcohol Level 176 MG/DL MDM Medical Decision Making Medical Screen Exam Complete: Yes Emergency Medical Condition: Yes Medical Record Reviewed: Yes Differential Diagnosis Mood disorder versus personality disorder versus adjustment reaction disorder. Narrative Course 36-year-old male presents to emergency department under Saeed act for psychiatric evaluation. Patient appears without distress. He reports feeling depressed and suicidal ideations. He has no acute medical history port this time. CBC and BMP are without acute concern, consistent with previous lab work. EtOH is172. Patient is medically cleared to undergo psychiatric screening for further evaluation and disposition. Mental health screening discussed with the patient. Psychiatric screen ordered. Diagnosis Primary Impression: Alcohol abuse with alcohol-induced mood disorder Condition: Stable Verna Olson October 15, 2016 23:58
[2016-10-16 00:40] VITALS: BP 115/54; PULSE 104; RESP 16; TEMP 98.4; O2SAT 97
[2016-10-16 00:54] LABS: AUTOMATED NEUTROPHIL # 2.2 TH/MM3 (1.8-7.7); BASOPHIL % 0.5 % (0.0-2.0); EOSINOPHIL % 0.7 % (0.0-4.0); HEMO FLAGS DIFF FINAL; LYMPH % 45.6 % (9.0-44.0); LYMPHOCYTE # 2.6 TH/MM3 (1.0-4.8); MEAN CELL VOLUME 91.3 FL (80.0-100.0); MEAN CORPUSCULAR HEMOGLOBIN 30.9 PG (27.0-34.0); MEAN CORPUSCULAR HGB CONC 33.9 % (32.0-36.0); MONO % 14.5 % (0.0-8.0); NEUT % 38.7 % (16.0-70.0); PLATELET COUNT 235 TH/MM3 (150-450); RED BLOOD COUNT 4.05 MIL/MM3 (4.50-5.90); RED CELL DISTRIBUTION WIDTH 14.2 % (11.6-17.2); WHITE BLOOD COUNT 5.6 TH/MM3 (4.0-11.0)
[2016-10-16 01:16] LABS: BICARBONATE 24.9 MEQ/L (21.0-32.0); POTASSIUM 3.7 MEQ/L (3.5-5.1)
[2016-10-16 06:29] VITALS: BP 122/67; PULSE 84; RESP 18; O2SAT 98
[2016-10-16 06:50] LABS: AMPHETAMINE, URINE NEG (NEG); BARBITURATES, URINE NEG (NEG); COCAINE, URINE POS (NEG)
[2016-10-16 11:37] VITALS: BP 113/61; PULSE 84; RESP 18; O2SAT 97
--- NOTE | 2016-10-16 17:16 | PD.CONS ---
Provisional Diagnosis Admission Date 10/15/16 [place] I. Adjustment disorder with disturbance of emotions and conduct F 43.25 polysubstance abuse F 19.10 History of Present Illness Service Psychiatry Consult Requested By EDMD Reason for Consult Christophe gonzalez Primary Care Physician Unknown HPI Patient is a 36 of Afro[place]izen [place] male who initially comes here under Saeed act by the [place] [employer] dated 10/15/16 2330 hrs. that report reviewed and agreed with basically stating that this subject wanted to jump in front of traffic in an life also stated that he was on Zyprexa with a? After it. Suffered from a mental illness but did not elaborate. Patient seen screen in the emergency department blood alcohol level of 176 urine toxicology positive for cocaine and marijuana. Of interest patient was hospitalized here through 10/10/16 under visit [id number] and released. At the present time patient sitting quietly in his room on J pod nurse Kiki present throughout session patient stating he went back to stay with his family with their drinking alcohol and drugs which led him to drink alcohol and drugs. With me he denies suicidality homicidality. There appears to be a degree of manipulation of prior maximum lingering with this. He states he may not pill to return to his family home. However also appears at the yes subsidies issues are quite prominent with this. In any event at this time patient does not meet Saeed criteria. Though surely does for physician certificate. Thus I'll lift the Saeed act. I will do a physician certificate to have [facility]. There will be no Rx by me at this time Review of Systems Constitutional: DENIES: Diaphoretic episodes, Fatigue, Fever, Weight gain, Weight loss, Chills, Dizziness, Change in appetite, Night Sweats Endocrine: DENIES: Heat/cold intolerance, Polydipsia, Polyuria, Polyphagia Eyes: DENIES: Blurred vision, Diplopia, Eye inflammation, Eye pain, Vision loss , Photosensitivity, Double Vision Ears, nose, mouth, throat: DENIES: Tinnitus, Hearing loss, Vertigo, Nasal discharge, Oral lesions, Throat pain, Hoarseness, Ear Pain, Running Nose, Epistaxis, Sinus Pain, Toothache, Odynophagia Respiratory: DENIES: Apneas, Cough, Snoring, Wheezing, Hemoptysis, Sputum production, Shortness of breath Cardiovascular: DENIES: Chest pain, Palpitations, Syncope, Dyspnea on Exertion , PND, Lower Extremity Edema, Orthopnea, Claudication Gastrointestinal: DENIES: Abdominal pain, Black stools, Bloody stools, Constipation, Diarrhea, Nausea, Vomiting, Difficulty Swallowing, Anorexia Genitourinary: DENIES: Sexual dysfunction, Urinary frequency, Urinary incontinence, Urgency, Hematuria, Dysuria, Nocturia, Penile Discharge, Testicular Pain, Testicular Swelling Musculoskeletal: DENIES: Joint pain, Muscle aches, Stiffness, Joint Swelling, Back pain, Neck pain Integumentary: DENIES: Abnormal pigmentation, Nail changes, Pruritus, Rash Hematologic/lymphatic: DENIES: Bruising, Lymphadenopathy Immunologic/allergic: DENIES: Eczema, Urticaria Neurologic: DENIES: Abnormal gait, Headache, Localized weakness, Paresthesias, Seizures, Speech Problems, Tremor, Poor Balance Psychiatric: DENIES: Anxiety, Confusion, Mood changes, Depression, Hallucinations, Agitation, Suicidal Ideation, Homicidal Ideation, Delusions Past Family Social History Coded Allergies: No Known Allergies (Unverified , 09/10/16) Past Medical History Patient medically cleared ED Active Scripts Thiamine (Vitamin B-1)100 Mg Sft620 Mg PO DAILY 30 Days Ref 0 Prov:Adrian Flores MD 10/10/16 Folic Acid (Folate)1 Mg Tab1 Mg PO DAILY 30 Days Ref 0 Prov:Adrian Flores MD 10/10/16 Olanzapine 10 Mg Tab10 Mg PO HS 15 Days Ref 1 Prov:Adrian Flores MD 10/10/16 Discontinued Reported Medications Clonidine 0.1 Mg Tab0.1 Mg PO BID #60 TAB Ref 0 09/11/16 Thioridazine 10 Mg Tab PO BID #60 TAB Ref 0 09/11/16 Family History Patient's history alcohol and drug use and family Social History Patient single has conflictual relationship with family long history of multiple drug abuse and mental health issues Patient's Strengths (min. 2) Patient verbal able axis health care Physical Exam Patient seen screaming ED exam reviewed and agreed with Vital Signs Vital Signs Date Time Temp Pulse Resp B/P Pulse Ox O2 Delivery O2 Flow Rate FiO2 10/16/16 11:37 84 18 113/61 97 Room Air 10/16/16 00:40 98.4 Mental Status Examination Alert oriented stockily built Afro[place]Citizen [place] male calm cooperative me with fair eye contact, somewhat guarded in his behavior Appearance Clean and neat Speech: Unremarkable Memory: Unremarkable Thought Process: Linear Thought Content: Unremarkable Language Fair Fund of Knowledge Poor Hallucination Type: None Attention and Concentration: Other (fair) Suicidal Ideation: Yes (vague but somewhat manipulative) Previous Suicide Attempts: No Homicidal Ideation: No Previous Homicide Attempts: No Insight: Poor Judgment: Poor Affect: Other (decreased range and intensity) Mood: Euthymic (to somewhat restricted and dysphoric) Motor Activity: Normal gait Assessment & Plan Problem List: (1) Adjustment disorder with mixed disturbance of emotions and conduct ICD Code: F43.25 (2) Polysubstance abuse ICD Code: F19.10 Assessment & Plan Estimated LOS: days patient does not meet Saeed criteria will lift Saeed act. He does for physician certificate. Elbow physician significant for patient to [facility] [employer] [facility] [employer] [facility] detox no Rx by me Discharge Planning See above Request HC Surrog/Guard Advoc?: No Je Jimenez MD October 16, 2016 17:16
[2016-10-16 18:48] VITALS: BP 120/68; PULSE 72; RESP 16; TEMP 98.2; O2SAT 98
[2016-10-16 22:00] VITALS: BP 122/63; PULSE 66; RESP 19; O2SAT 99
[2016-10-17 02:00] VITALS: BP 108/57; PULSE 71; RESP 19; O2SAT 97
== END 2016-10-17 11:04 ==
LOC: MERGE 23:50 → NEPD 23:50 → NEPJ 10-17 11:04
DX: F10.14 Alcohol abuse with alcohol-induced mood disorder (principal); F19.10 Other psychoactive substance abuse, uncomplicated; F43.25 Adjustment disorder with mixed disturbance of emotions and conduct; F20.9 Schizophrenia, unspecified; F12.90 Cannabis use, unspecified, uncomplicated; Y90.6 Blood alcohol level of 120-199 mg/100 ml
CPT/HCPCS: 80048; 80307; 85025; 99283

== ENCOUNTER 2016-10-24 10:29 | Emergency (ER) | payer SELFPAY ==
[~2016-10-24] VITALS: Ht 180.3 cm; Wt 90.0 kg
[2016-10-24 10:32] VITALS: BP 107/74; PULSE 102; RESP 17; TEMP 98.2; O2SAT 95
[2016-10-24] MEDS ORDERED: PROZ40CA PO (11:22)
[2016-10-24] MEDS ORDERED: CLON0.2T PO (11:23)
[2016-10-24] MEDS ORDERED: MOTR200T4 PO (11:41)
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
== END 2016-10-24 11:43 | disposition home or self-care (01) ==
LOC: NEPK 10:29 → MERGE 10:29 → NEPK 11:43
DX: M25.512 Pain in left shoulder (principal); Z72.0 Tobacco use
CPT/HCPCS: 99283

== ENCOUNTER 2016-10-30 03:13 | Emergency (ER) | payer SELFPAY ==
[~2016-10-30] VITALS: Ht 177.8 cm; Wt 92.0 kg
[~2016-10-30 03:13] MED LIST changes: +CLON0.2T PO; +MOTR200T4 PO; +PROZ40CA PO; -VITA100T2 PO
[2016-10-30 03:19] VITALS: BP 134/76; PULSE 98; RESP 18; TEMP 98.3; O2SAT 95
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
[2016-10-30 04:21] LABS: AUTOMATED NEUTROPHIL # 2.6 TH/MM3 (1.8-7.7); BASOPHIL % 0.2 % (0.0-2.0); EOSINOPHIL # 0.1 TH/MM3 (0-0.4); EOSINOPHIL % 1.3 % (0.0-4.0); HEMATOCRIT 37.4 % (39.0-51.0); HEMO FLAGS DIFF FINAL; LYMPH % 36.6 % (9.0-44.0); LYMPHOCYTE # 1.9 TH/MM3 (1.0-4.8); MEAN CELL VOLUME 90.7 FL (80.0-100.0); MEAN CORPUSCULAR HGB CONC 34.2 % (32.0-36.0); MONO % 12.2 % (0.0-8.0); NEUT % 49.7 % (16.0-70.0); PLATELET COUNT 255 TH/MM3 (150-450); RED BLOOD COUNT 4.13 MIL/MM3 (4.50-5.90); RED CELL DISTRIBUTION WIDTH 14.7 % (11.6-17.2); WHITE BLOOD COUNT 5.3 TH/MM3 (4.0-11.0)
[2016-10-30 04:50] LABS: ALT (GPT) 39 U/L (12-78); ANION GAP 9 MEQ/L (5-15); AST (GOT) 46 U/L (15-37); BICARBONATE 28.2 MEQ/L (21.0-32.0); BLOOD UREA NITROGEN 10 MG/DL (7-18); CHLORIDE 101 MEQ/L (98-107); GLOMERULAR FILTRATION RATE 100 ML/MIN (>89); POTASSIUM 3.7 MEQ/L (3.5-5.1); SODIUM (NA) 138 MEQ/L (136-145)
[2016-10-30 04:51] LABS: ALKALINE PHOSPHATASE 165 U/L (45-117); TOTAL BILIRUBIN ADULT 0.4 MG/DL (0.2-1.0)
[2016-10-30 06:15] VITALS: BP 116/78; PULSE 83; RESP 18; O2SAT 98
[2016-10-30 13:45] VITALS: BP 123/80; PULSE 93; RESP 18
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
== END 2016-10-30 16:47 | disposition home or self-care (01) ==
LOC: MERGE 03:13 → NEPD 03:13 → NEPJ 16:47
DX: F19.14 Other psychoactive substance abuse with psychoactive substance-induced mood disorder (principal); F17.200 Nicotine dependence, unspecified, uncomplicated; F20.9 Schizophrenia, unspecified; Z79.899 Other long term (current) drug therapy
CPT/HCPCS: 80053; 80307; 85025; 99284

== ENCOUNTER 2016-11-03 00:31 | Emergency (ER) | payer SELFPAY ==
[~2016-11-03] VITALS: Ht 180.3 cm; Wt 91.0 kg
[~2016-11-03 00:31] MED LIST changes: -FOLI1TAB4 PO; -MOTR200T4 PO
[2016-11-03 00:33] VITALS: BP 134/61; PULSE 87; RESP 16; TEMP 98.7; O2SAT 97
[2016-11-03 00:52] VITALS: BP 130/79; PULSE 90; RESP 14; TEMP 97.6; O2SAT 95
--- NOTE | 2016-11-03 01:52 | PD ---
HPI Chief Complaint: Psychiatric Symptoms Time Seen by Provider: 01:48 Travel History International Travel<30 days: No Contact w/Intl Traveler<30days: No Traveled to known affect area: No History of Present Illness HPI 36-year-old black male presents to emergency department on a voluntary basis for psychological evaluation. The patient states that he is homeless. He is not taking his medications currently. He states that he had left his medications and his brother's car in [place] and he does not have access. He's been off his medicine for some time now. He states that he feels suicidal. He has contemplated shooting himself a gun. The patient states that he owns a handgun even though he is a felon. The patient denies any toxic ingestions. He denies any aches of self-harm to himself. He has no homicidal ideation. No recent illness. He does admit to alcohol and substance abuse. PFSH Past Medical History Hx Anticoagulant Therapy: No Autoimmune Disease: No Bipolar Disorder: Yes (PER PATIENT) Depression: Yes Cardiovascular Problems: No (per pt) Chemotherapy: No Cerebrovascular Accident: No Diabetes: No (per pt ) Diminished Hearing: No Endocrine: No Headaches: No (per pt) Immune Disorder: No Musculoskeletal: No Psychiatric: Yes (Bipolar, Schizophrenia, and depression) Respiratory: No Schizophrenia: Yes Tetanus Vaccination: Unknown Influenza Vaccination: No Past Surgical History Surgical History: No Previous Surgery Other Surgery: No Social History Alcohol Use: Yes Tobacco Use: Yes (1/2 PPD) Substance Use: Yes (CHIARA,COCAINE,THC ETOH) Allergies-Medications (Allergen,Severity, Reaction): Coded Allergies: No Known Allergies (Unverified , 11/03/16) Reported Meds & Prescriptions Reported Meds & Active Scripts Active Olanzapine 10 Mg Tab 10 Mg PO HS 15 Days Reported Clonidine (Clonidine HCl) 0.2 Mg Tab 0.2 Mg PO BID Prozac (Fluoxetine HCl) 40 Mg Cap 40 Mg PO DAILY Review of Systems Except as stated in HPI: all other systems reviewed are Neg Psychiatric: Positive: Depression, Suicidal Ideations, Mood Disorder, Substance Abuse, No: Anxiety, Disorder of Thought, Homicidal Ideation Physical Exam Narrative GENERAL: Well-nourished, well-developed patient. SKIN: Warm and dry. HEAD: Normocephalic and atraumatic. EYES: No scleral icterus. No injection or drainage. ENT: No nasal drainage noted. Mucous membranes pink. Airway patent. NECK: Supple, trachea midline. Moves head freely without obvious discomfort. CARDIOVASCULAR: Regular rate and rhythm without murmurs, gallops, or rubs. RESPIRATORY: Breath sounds equal bilaterally. No accessory muscle use. GASTROINTESTINAL: Abdomen soft, non-tender, nondistended. EXTREMITIES: No cyanosis or edema. BACK: Nontender without obvious deformity. No CVA tenderness. NEURO: Patient is alert and oriented. no sensorimotor deficits. Nonfocal. Normal speech. PSYCH: No delusions. No auditory or visual hallucinations. Data Data Last Documented VS Vital Signs Date Time Temp Pulse Resp B/P Pulse Ox O2 Delivery O2 Flow Rate FiO2 11/03/16 00:52 97.6 90 14 130/79 95 11/03/16 00:33 Room Air Orders Psych Screen (11/03/16 01:09) Drug Screen, Random Urine (11/03/16 01:09) Alcohol (Ethanol) (11/03/16 01:09) Labs Laboratory Tests Test 11/03/16 01:30 Urine Opiates Screen NEG Urine Barbiturates Screen NEG Urine Amphetamines Screen NEG Urine Benzodiazepines Screen POS Urine Cocaine Screen NEG Urine Cannabinoids Screen POS Ethyl Alcohol Level 44 MG/DL MDM Medical Decision Making Medical Screen Exam Complete: Yes Emergency Medical Condition: Yes Medical Record Reviewed: Yes Interpretation(s) Laboratory Tests Test 11/03/16 01:30 Urine Opiates Screen NEG Urine Barbiturates Screen NEG Urine Amphetamines Screen NEG Urine Benzodiazepines Screen POS Urine Cocaine Screen NEG Urine Cannabinoids Screen POS Ethyl Alcohol Level 44 MG/DL Differential Diagnosis MDM: High Differential diagnoses: Schizophrenia, schizoaffective disorder, bipolar, anxiety, depression, adjustment reaction, mood disorder NOS, ODD, depressive disorder NOS, dementia, dementia with agitation, psychosis NOS, substance induced mood disorder, intermittent explosive disorder, Asperger syndrome, infection,electrolyte abnormality, malingering. Narrative Course Mental health screening discussed with the patient. Psychiatric screen ordered. This is a patient who has had multiple ER visits for similar type presentations. This is medical clearance for psychological evaluation, substance abuse Diagnosis Primary Impression: Medical clearance for psychiatric admission Additional Impression: Substance abuse Condition: Stable Jose Scott Nov 03, 2016 01:52
[2016-11-03 01:56] LABS: AMPHETAMINE, URINE NEG (NEG); BARBITURATES, URINE NEG (NEG); COCAINE, URINE NEG (NEG)
[2016-11-03 07:21] VITALS: BP 118/78; PULSE 63; RESP 13; TEMP 97.9; O2SAT 96
--- NOTE | 2016-11-03 11:33 | PD ---
History of Present Illness Chief Complaint: Psychiatric Symptoms Time Seen by Provider: 11:30 Travel History International Travel<30 Days: No Contact w/Intl Traveler<30days: No Known affected area: No Legal Status Legal Status: Involuntary Saeed Act Signed By: History of Present Illness: This is a 36-year-old male who initially presented to the emergency department voluntarily due to homelessness, not having his medications and eventual complaints of suicidality. This physician extensively reviewed the patient's past medical and psychiatric records here at [facility]. He has been seen 3 times in the last several weeks with similar complaints. Although there is documentation that he has been diagnosed in the past with schizophrenia, etc., there is also contradicting documentation that indicates he does not present with a thought disorder. Upon interview today, the patient's thoughts are clear , logical, organized and goal directed. He is complaining that he will kill himself if he is not admitted. However he also states he has an appointment at [facility] in approximately 10 days for evaluation to receive Social Security disability. In fact, he states he received Social Security as a child and would like to get back on it as an adult. Furthermore, he states he is not truly homeless but that his aunt and he argue at times and he goes back and forth between her house and living on the streets. He does believe he is welcome at her house. Finally, he is requesting medications of Zyprexa and Prozac and this physician will provide these prescriptions per his request. It does appear that the patient has the cognitive wherewithal to understand his circumstances and make competent decisions. He chooses to act irresponsibly. This physician finds it counter therapeutic to admit the patient to psychiatry at this time. PFSH Past Medical History Hx Anticoagulant Therapy: No Autoimmune Disease: No Bipolar Disorder: Yes (PER PATIENT) Depression: Yes Cardiovascular Problems: No (per pt) Chemotherapy: No Cerebrovascular Accident: No Diabetes: No (per pt ) Diminished Hearing: No Endocrine: No Headaches: No (per pt) Immune Disorder: No Musculoskeletal: No Psychiatric: Yes (Bipolar, Schizophrenia, and depression) Respiratory: No Schizophrenia: Yes Tetanus Vaccination: Unknown Influenza Vaccination: No Past Surgical History Surgical History: No Previous Surgery Other Surgery: No Psychiatric History Psychiatric History Hx Psychiatric Treatment: Patient reports being at [facility] inpatient 09/12/16-09/20/16, and reports meeting with a therapist. Last hosp at [facility] on October 2016. History of Inpatient Treatment: Yes Guns or firearms in home: No Social History Hx Alcohol Use: Yes Hx Tobacco Use: Yes (1/2 PPD) Hx Substance Use: Yes (CHIARA,COCAINE,THC ETOH) Substance Use Type: Alcohol, Marijuana, Cocaine Hx of Substance Use Treatment: No Allergies-Medications (Allergen,Severity, Reaction): Coded Allergies: No Known Allergies (Unverified , 11/03/16) Reported Meds & Prescriptions Reported Meds & Active Scripts Active Olanzapine 10 Mg Tab 10 Mg PO HS 15 Days Reported Clonidine (Clonidine HCl) 0.2 Mg Tab 0.2 Mg PO BID Prozac (Fluoxetine HCl) 40 Mg Cap 40 Mg PO DAILY Review of Systems Except as stated in HPI: all other systems reviewed are Neg Exam Alert: Yes [place]: Person, Place Mood: Calm Affect: Appropriate Speech: Clear, Logical Eye Contact: Normal Memory Intact: Immediate, Recent, Remote Suicidal: Ideation Insight/Judgement Adequate. Adequate. Patient shows no current evidence of psychotic thinking. MDM Medical Decision Making Medical Record Reviewed: Yes Assessment/Plan Saeed act is being lifted or patient being discharged from voluntary status. Patient does not meet criteria for inpatient psychiatric hospitalization at this time, in my opinion. Furthermore, this physician finds the patient to be exhibiting symptoms and signs of malingering or manipulation. To admit him to psychiatry for this behavior would be counter therapeutic. Orders Psych Screen (11/03/16 01:09) Drug Screen, Random Urine (11/03/16 01:09) Alcohol (Ethanol) (11/03/16 01:09) Results Vital Signs Date Time Temp Pulse Resp B/P Pulse Ox O2 Delivery O2 Flow Rate FiO2 11/03/16 07:21 97.9 63 13 118/78 96 Room Air 11/03/16 00:52 97.6 90 14 130/79 95 11/03/16 00:33 98.7 87 16 134/61 97 Room Air Laboratory Tests Test 11/03/16 01:30 Urine Opiates Screen NEG Urine Barbiturates Screen NEG Urine Amphetamines Screen NEG Urine Benzodiazepines Screen POS Urine Cocaine Screen NEG Urine Cannabinoids Screen POS Ethyl Alcohol Level 44 Diagnosis Primary Impression: Adjustment disorder with mixed disturbance of emotions and conduct Condition: Stable Kevin Pardo MD Nov 03, 2016 11:33
[2016-11-03] MEDS ORDERED: OLAN10TA PO (11:34)
[2016-11-03] MEDS ORDERED: PROZ40CA PO (11:34)
== END 2016-11-03 11:48 | disposition home or self-care (01) ==
LOC: MERGE 00:31 → NEPD 00:31
DX: F43.25 Adjustment disorder with mixed disturbance of emotions and conduct (principal); F20.9 Schizophrenia, unspecified; F31.9 Bipolar disorder, unspecified; R45.851 Suicidal ideations; F17.210 Nicotine dependence, cigarettes, uncomplicated; F12.10 Cannabis abuse, uncomplicated; F10.10 Alcohol abuse, uncomplicated; F14.10 Cocaine abuse, uncomplicated; Z91.14 Patient's other noncompliance with medication regimen; Y90.2 Blood alcohol level of 40-59 mg/100 ml
CPT/HCPCS: 80307; 99284

== ENCOUNTER 2017-01-18 17:15 | Emergency (ER) | payer OTHER ==
[~2017-01-18] VITALS: Ht 180.3 cm; Wt 74.0 kg
[2017-01-18 17:28] VITALS: BP 99/62; PULSE 102; RESP 16
[2017-01-18] MEDS ORDERED: LORazepam 2 MG/ML VIAL IV ONE (17:45)
[2017-01-18] MEDS ORDERED: TETANUS/DIPHTHERIA TOXOID ADULT 0.5 ML VIAL IM ONE (17:45)
[2017-01-18] MEDS ORDERED: diphenhydrAMINE HCL 50 MG/ML VIAL IV PUSH ONE (17:45)
[2017-01-18] MEDS ORDERED: HALOPERIDOL LACTATE 5 MG/ML AMP IM ONE (17:45)
[2017-01-18] MEDS ORDERED: LIDOCAINE 1%/EPINEPHrine 1:100,000 SOLN 20 ML VIAL INFIL ONE (18:00)
--- NOTE | 2017-01-18 18:26 | PD ---
Physical Exam Date Seen by Provider: Jan 18, 2017 Time Seen by Provider: 18:23 Narrative I was asked by Dr. Joe Suarez to repair this laceration. Data Data Last Documented VS Vital Signs Date Time Temp Pulse Resp B/P Pulse Ox O2 Delivery O2 Flow Rate FiO2 01/18/17 17:28 102 16 99/62 Orders Complete Blood Count With Diff (01/18/17 17:39) Comprehensive Metabolic Panel (01/18/17 17:39) Oximetry (01/18/17 17:39) Iv Access Insert/Monitor (01/18/17 17:39) Ecg Monitoring (01/18/17 17:39) Psych Screen (01/18/17 17:39) Haloperidol Inj (Haldol Inj) (01/18/17 17:45) Lorazepam Inj (Ativan Inj) (01/18/17 17:45) Drug Screen, Random Urine (01/18/17 17:39) Alcohol (Ethanol) (01/18/17 17:39) Ct Brain W/O Iv Contrast(Rout) (01/18/17 17:39) Diphenhydramine Inj (Benadryl Inj) (01/18/17 17:45) Tetanus/Diphtheria Tox Adult (Tetanus/Di (01/18/17 17:45) Lidocai-Epi 1%-1:100,000 Inj (Xylocaine- (01/18/17 18:00) MDM Medical Record Reviewed: Yes Supervised Visit with KARINA: No Differential Diagnosis Scalp laceration Narrative Course There was a 5 cm laceration to the parietal scalp. Patient gave verbal consent to repair. Procedures Procedure Narrative I first cleaned the laceration with normal saline, making sure there were no foreign bodies in the laceration. The laceration was then anesthesized using 10 mL of 1% Xylocaine with epi. 8 subhash were then placed for a 5 cm laceration. The patient tolerated the procedure well. He was moving during the procedure, laceration was approximated as best as possible. Additional Instruction: Patient will need to see his PCP in 7 days to have 8 subhash removed. Patient to return to the ED if not able to get in with primary care. Condition: Stable Kori Campos Jan 18, 2017 18:26
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
[2017-01-18 18:45] LABS: AUTOMATED NEUTROPHIL # 2.3 TH/MM3 (1.8-7.7); BASOPHIL % 0.4 % (0.0-2.0); EOSINOPHIL % 0.6 % (0.0-4.0); HEMATOCRIT 40.9 % (39.0-51.0); HEMO FLAGS DIFF FINAL; LYMPHOCYTE # 1.6 TH/MM3 (1.0-4.8); MEAN CELL VOLUME 94.9 FL (80.0-100.0); MEAN CORPUSCULAR HEMOGLOBIN 32.6 PG (27.0-34.0); MEAN CORPUSCULAR HGB CONC 34.4 % (32.0-36.0); MONO % 11.4 % (0.0-8.0); NEUT % 51.6 % (16.0-70.0); PLATELET COUNT 247 TH/MM3 (150-450); RED BLOOD COUNT 4.31 MIL/MM3 (4.50-5.90); RED CELL DISTRIBUTION WIDTH 14.1 % (11.6-17.2); WHITE BLOOD COUNT 4.5 TH/MM3 (4.0-11.0)
[2017-01-18 18:55] LABS: ALT (GPT) 24 U/L (12-78); ANION GAP 10 MEQ/L (5-15); AST (GOT) 28 U/L (15-37); BICARBONATE 26.9 MEQ/L (21.0-32.0); BLOOD UREA NITROGEN 10 MG/DL (7-18); CHLORIDE 106 MEQ/L (98-107); GLOMERULAR FILTRATION RATE 79 ML/MIN (>89); POTASSIUM 3.7 MEQ/L (3.5-5.1); SODIUM (NA) 143 MEQ/L (136-145)
[2017-01-18 18:58] LABS: ALKALINE PHOSPHATASE 162 U/L (45-117); TOTAL BILIRUBIN ADULT 0.4 MG/DL (0.2-1.0)
[2017-01-18 19:00] VITALS: BP 107/66; PULSE 93; RESP 18; O2SAT 96; O2SAT 97
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
[2017-01-18 22:09] VITALS: BP 114/74; PULSE 90; RESP 18; O2SAT 97
[2017-01-19 00:20] VITALS: BP 113/75; PULSE 87; RESP 18; O2SAT 98
[2017-01-19 02:00] VITALS: BP 112/59; PULSE 79; RESP 17; O2SAT 96
[2017-01-19 06:00] VITALS: BP 125/75; PULSE 95; RESP 17; O2SAT 98
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
[2017-01-19 13:31] VITALS: BP 125/75
--- NOTE | 2017-02-04 20:37 | PD ---
Physical Exam Narrative RECEIVED SIGN OUT FROM DR COX PENDING REMAINDER OF LABS/CT HEAD FOR MEDICAL CLEARANCE TO BE COMPLETED. PATIENT UNDER TABARES ACT.GENERAL: SKIN: Warm and dry. HEAD: LACERATION NOTED ON SCALP S/P REPAIR (SEE PA NOTES FOR FURTHER DETAILS). Normocephalic. EYES: Pupils equal and round. ENT: No nasal bleeding or discharge. Mucous membranes pink and moist.NO HEMOTYMPANUM NECK: Trachea midline. No JVD. CARDIOVASCULAR: Regular rate and rhythm. RESPIRATORY: No accessory muscle use. Clear to auscultation. Breath sounds equal bilaterally. GASTROINTESTINAL: Abdomen soft, non-tender, nondistended. Hepatic and splenic margins not palpable. MUSCULOSKELETAL: Extremities without clubbing, cyanosis, or edema. No obvious deformities. NEUROLOGICAL: Awake and alert. No obvious cranial nerve deficits. Motor grossly within normal limits. Five out of 5 muscle strength in the arms and legs. Normal speech. PSYCHIATRIC: PATIENT IS CURRENTLY CALM AND SLEEPING AT TIME OF REEXAMINATION.. Data Data Orders Orders Complete Blood Count With Diff (01/18/17 17:39) Comprehensive Metabolic Panel (01/18/17 17:39) Oximetry (01/18/17 17:39) Iv Access Insert/Monitor (01/18/17 17:39) Ecg Monitoring (01/18/17 17:39) Psych Screen (01/18/17 17:39) Haloperidol Inj (Haldol Inj) (01/18/17 17:45) Lorazepam Inj (Ativan Inj) (01/18/17 17:45) Alcohol (Ethanol) (01/18/17 17:39) Ct Brain W/O Iv Contrast(Rout) (01/18/17 17:39) Diphenhydramine Inj (Benadryl Inj) (01/18/17 17:45) Tetanus/Diphtheria Tox Adult (Tetanus/Di (01/18/17 17:45) Lidocai-Epi 1%-1:100,000 Inj (Xylocaine- (01/18/17 18:00) Diet Regular Basic (01/19/17 Breakfast) Labs Laboratory Tests Test 01/18/17 18:00 White Blood Count 4.5 TH/MM3 Red Blood Count 4.31 MIL/MM3 Hemoglobin 14.1 GM/DL Hematocrit 40.9 % Mean Corpuscular Volume 94.9 FL Mean Corpuscular Hemoglobin 32.6 PG Mean Corpuscular Hemoglobin Concent 34.4 % Red Cell Distribution Width 14.1 % Platelet Count 247 TH/MM3 Mean Platelet Volume 8.5 FL Neutrophils (%) (Auto) 51.6 % Lymphocytes (%) (Auto) 36.0 % Monocytes (%) (Auto) 11.4 % Eosinophils (%) (Auto) 0.6 % Basophils (%) (Auto) 0.4 % Neutrophils # (Auto) 2.3 TH/MM3 Lymphocytes # (Auto) 1.6 TH/MM3 Monocytes # (Auto) 0.5 TH/MM3 Eosinophils # (Auto) 0.0 TH/MM3 Basophils # (Auto) 0.0 TH/MM3 CBC Comment DIFF FINAL Differential Comment Blood Urea Nitrogen 10 MG/DL Creatinine 1.26 MG/DL Random Glucose 92 MG/DL Total Protein 8.2 GM/DL Albumin 4.0 GM/DL Calcium Level 8.9 MG/DL Alkaline Phosphatase 162 U/L Aspartate Amino Transf (AST/SGOT) 28 U/L Alanine Aminotransferase (ALT/SGPT) 24 U/L Total Bilirubin 0.4 MG/DL Sodium Level 143 MEQ/L Potassium Level 3.7 MEQ/L Chloride Level 106 MEQ/L Carbon Dioxide Level 26.9 MEQ/L Anion Gap 10 MEQ/L Estimat Glomerular Filtration Rate 79 ML/MIN Ethyl Alcohol Level 215 MG/DL [facility] Medical Record Reviewed: Yes Supervised Visit with KARINA: No Narrative Course PATIENT WAS REEVALUATED AND CT/LABS REVIEWED WHICH DID NOT SHOW ANY ACUTE SIGNIFICANT DERANGEMENT, PATIENT IS MEDICALLY CLEARED FOR PSYCHIATRIC EVALUATION. PATIENT IS SIGNED OUT TO DR ROSALES PENDING PSYCHIATRIC SCREENING/ EVALUATION AND EVENTUAL DISPOSITION Diagnosis Primary Impression: Alcohol abuse with alcohol-induced mood disorder Additional Impression: Medical clearance for psychiatric admission Patient Instructions: General Instructions, Laceration (ED), Medical Clearance for Psychiatric Care (ED) Departure Forms: Tests/Procedures Additional Instruction: Patient will need to see his PCP in 7 days to have 8 subhash removed. Patient to return to the ED if not able to get in with primary care. DISCHARGE HOME DIAGNOSIS ALCOHOL ABUSE, SCALP LACERATION FOLOW-UP PLANNED WITH [facility] ON RETURN TO ED FOR WORSENING PROBLEMS Disposition: 01 DISCHARGE HOME Condition: Stable Stone Correa MD Feb 04, 2017 20:37
== END 2017-01-19 13:38 | disposition home or self-care (01) ==
LOC: NEPC 17:15 → NEPJ 01-19 13:38
DX: S01.01XA Laceration without foreign body of scalp, initial encounter (principal); F10.10 Alcohol abuse, uncomplicated; X58.XXXA Exposure to other specified factors, initial encounter
CPT/HCPCS: 12002; 70450; 80053; 80307; 85025; 90714; 96372; 96374; 96375; 99285; J1200; J1630; J2060

== ENCOUNTER 2017-01-22 16:43 | Emergency (ER) | payer OTHER ==
[2017-01-22] MEDS ORDERED: SODIUM CHLOR 0.9% 1000 ML INJ 1,000 ML IV SCH (16:54)
[2017-01-22 17:00] VITALS: BP 142/82; PULSE 90; RESP 18; TEMP 98.3; O2SAT 100
[2017-01-22] MEDS ORDERED: HALOPERIDOL LACTATE 5 MG/ML AMP IM ONE (17:00)
[2017-01-22] MEDS ORDERED: diphenhydrAMINE HCL 50 MG/ML VIAL IM ONE (17:00)
[2017-01-22] MEDS ORDERED: SODIUM CHLORIDE 0.9% FLUSH 5 ML FLUSH IV FLUSH PRN (17:00)
[2017-01-22] MEDS ORDERED: LORazepam 2 MG/ML VIAL IM ONE (17:00)
--- NOTE | 2017-01-22 17:24 | PD ---
HPI Chief Complaint: medical clearance Time Seen by Provider: 17:00 Travel History International Travel<30 days: No Contact w/Intl Traveler<30days: No History of Present Illness HPI Patient is brought in under police escort for medical clearance. Patient was reportedly kicking in doors to unknown person's house screaming that he was the police and once he got house went to another house and started kicking in doors there which is where he was arrested. After being arrested patient reportedly was complaining of chest pain and was brought to emergency department for further treatment and evaluation. Patient appears under the influence of unknown substance but has a history of Flakka, cocaine, THC, and alcohol abuse per patient's medical records. Patient is not able to provide any history at this time just keeps rambling on, screaming, and repeating himself thus limiting history of present illness. PFSH Past Medical History Hx Anticoagulant Therapy: No Bipolar Disorder: Yes Anxiety: Yes Depression: Yes Diminished Hearing: No Psychiatric: Yes (Bipolar, Schizophrenia, and depression) Schizophrenia: Yes Past Surgical History Other Surgery: No Social History Alcohol Use: No (UTO) Tobacco Use: No (UTO) Substance Use: Yes (FLAKKA,COCAINE,THC,ETOH) Allergies-Medications (Allergen,Severity, Reaction): Coded Allergies: No Known Allergies (Verified , 10/13/16) Reported Meds & Prescriptions Reported Meds & Active Scripts Active Prozac (Fluoxetine HCl) 40 Mg Cap 40 Mg PO DAILY Olanzapine 10 Mg Tab 10 Mg PO HS 15 Days Reported Folic Acid 5 Mg Cap 1 Mg PO DAILY Vitamin B-1 (Thiamine HCl) 100 Mg Tab 100 Mg PO DAILY Chlorpromazine (Chlorpromazine HCl) 100 Mg Tab 100 Mg PO HS PRN Olanzapine 20 Mg Tab 20 Mg PO HS Clonidine (Clonidine HCl) 0.2 Mg Tab 0.2 Mg PO BID Review of Systems Except as stated in HPI: all other systems reviewed are Neg Physical Exam Narrative GENERAL: Well-developed, well nourished, in no acute distress, and non-ill appearing. SKIN: Focused skin assessment warm and dry. HEAD: Atraumatic. Normocephalic. EYES: Pupils equal and round. EOMI. No scleral icterus. No injection or drainage. ENT: No nasal bleeding or discharge. Mucous membranes pink and moist. NECK: Trachea midline. Supple. No nuclear rigidity. CARDIOVASCULAR: Tachycardia rate and regular rhythm. No murmur appreciated. RESPIRATORY: No accessory muscle use. No respiratory distress. Clear to auscultation. Breath sounds equal bilaterally. MUSCULOSKELETAL: No obvious deformities. No clubbing. No cyanosis. No edema. Full range of motion. NEUROLOGICAL: Awake and alert. No obvious cranial nerve deficits. Motor grossly within normal limits. Rambling speech. PSYCHIATRIC: Inappropriate mood and affect; insight and judgment abnormal. Data Data Last Documented VS Vital Signs Date Time Temp Pulse Resp B/P (MAP) Pulse Ox O2 Delivery O2 Flow Rate FiO2 01/22/17 23:39 01/22/17 19:44 71 14 98 01/22/17 17:00 98.3 Orders Orders Electrocardiogram (01/22/17 16:54) Basic Metabolic Panel (Bmp) (01/22/17 16:54) Complete Blood Count With Diff (01/22/17 16:54) Blood Glucose (01/22/17 16:54) Ecg Monitoring (01/22/17 16:54) Iv Access Insert/Monitor (01/22/17 16:54) Oximetry (01/22/17 16:54) Sodium Chloride 0.9% Flush (Ns Flush) (01/22/17 17:00) Sodium Chlor 0.9% 1000 Ml Inj (Ns 1000 M (01/22/17 16:54) Alcohol (Ethanol) (01/22/17 16:54) Tylenol (Acetaminophen) (01/22/17 16:54) Salicylates (Aspirin) (01/22/17 16:54) Lorazepam Inj (Ativan Inj) (01/22/17 17:00) Haloperidol Inj (Haldol Inj) (01/22/17 17:00) Diphenhydramine Inj (Benadryl Inj) (01/22/17 17:00) Labs Laboratory Tests Test 01/22/17 18:30 White Blood Count 6.1 TH/MM3 Red Blood Count 4.13 MIL/MM3 Hemoglobin 13.3 GM/DL Hematocrit 39.4 % Mean Corpuscular Volume 95.4 FL Mean Corpuscular Hemoglobin 32.2 PG Mean Corpuscular Hemoglobin Concent 33.7 % Red Cell Distribution Width 13.8 % Platelet Count 229 TH/MM3 Mean Platelet Volume 9.3 FL Neutrophils (%) (Auto) 73.7 % Lymphocytes (%) (Auto) 13.5 % Monocytes (%) (Auto) 12.4 % Eosinophils (%) (Auto) 0.1 % Basophils (%) (Auto) 0.3 % Neutrophils # (Auto) 4.5 TH/MM3 Lymphocytes # (Auto) 0.8 TH/MM3 Monocytes # (Auto) 0.8 TH/MM3 Eosinophils # (Auto) 0.0 TH/MM3 Basophils # (Auto) 0.0 TH/MM3 CBC Comment DIFF FINAL Differential Comment Blood Urea Nitrogen 14 MG/DL Creatinine 1.13 MG/DL Random Glucose 76 MG/DL Calcium Level 9.2 MG/DL Sodium Level 136 MEQ/L Potassium Level 3.5 MEQ/L Chloride Level 103 MEQ/L Carbon Dioxide Level 25.2 MEQ/L Anion Gap 8 MEQ/L Estimat Glomerular Filtration Rate 90 ML/MIN Salicylates Level 2.2 MG/DL Acetaminophen Level LESS THAN 2.0 MCG/ML Ethyl Alcohol Level LESS THAN 3 MG/DL MDM Medical Decision Making Medical Screen Exam Complete: Yes Emergency Medical Condition: Yes Interpretation(s) EKG reviewed by Dr. Palacios sinus tachycardia with ventricular rate of 109. No STEMI. Differential Diagnosis Substance-induced psychosis, substance abuse, electrolyte abnormality, arrhythmia, other Narrative Course Patient was seen and examined. Initial laboratory orders and medications placed by Dr. Palacios. 0 patient reassessed sleeping comfortably in bed in no acute distress after receiving medication. We'll continue to monitor the patient the ER prior to clearing him for residential. 2149 patient reassessed. Patient patient is now awake and making sense. Patient states that he was in "attack mode" after being arrested and when he was so out of control. He states he feels better now. Patient states he wants to talk to the chief police when he gets to residential, so he can explain the entire situation to him. Patient denies any medical complaints at this time. Patient in no obvious distress upon re-evaluation. All pertinent laboratory result(s) discussed with patient. Discussed patient with Dr. Vinson prior to discharge, who is in agreement with plan of care and disposition. Pt ambulated without difficulty out of ED at discharge under police escort. Diagnosis Primary Impression: Medical clearance for incarceration Disposition: [address] LAW ENFORCEMNT Condition: Stable Darryn Aguilera Jan 22, 2017 17:24
[2017-01-22 19:19] LABS: ANION GAP 8 MEQ/L (5-15)
[2017-01-22 19:23] LABS: BICARBONATE 25.2 MEQ/L (21.0-32.0); BLOOD UREA NITROGEN 14 MG/DL (7-18); CHLORIDE 103 MEQ/L (98-107); GLOMERULAR FILTRATION RATE 90 ML/MIN (>89); POTASSIUM 3.5 MEQ/L (3.5-5.1); SODIUM (NA) 136 MEQ/L (136-145)
[2017-01-22 19:24] LABS: ACETAMINOPHEN LESS THAN 2.0 MCG/ML (10.0-30.0); ALCOHOL LESS THAN 3 MG/DL (0-5)
[2017-01-22 19:25] LABS: AUTOMATED NEUTROPHIL # 4.5 TH/MM3 (1.8-7.7); BASOPHIL % 0.3 % (0.0-2.0); EOSINOPHIL % 0.1 % (0.0-4.0); HEMATOCRIT 39.4 % (39.0-51.0); HEMO FLAGS DIFF FINAL; LYMPH % 13.5 % (9.0-44.0); LYMPHOCYTE # 0.8 TH/MM3 (1.0-4.8); MEAN CELL VOLUME 95.4 FL (80.0-100.0); MEAN CORPUSCULAR HEMOGLOBIN 32.2 PG (27.0-34.0); MEAN CORPUSCULAR HGB CONC 33.7 % (32.0-36.0); MONO % 12.4 % (0.0-8.0); NEUT % 73.7 % (16.0-70.0); PLATELET COUNT 229 TH/MM3 (150-450); RED BLOOD COUNT 4.13 MIL/MM3 (4.50-5.90); RED CELL DISTRIBUTION WIDTH 13.8 % (11.6-17.2); WHITE BLOOD COUNT 6.1 TH/MM3 (4.0-11.0)
[2017-01-22 19:44] VITALS: BP 116/71; PULSE 71; RESP 14; O2SAT 98
--- NOTE | 2017-01-22 21:39 | EKG ---
Date Performed: 01/22/2017 Time Performed: 16:58:07 PTAGE: 36 years EKG: SINUS TACHYCARDIA POSSIBLE LEFT ATRIAL ENLARGEMENT ABNORMAL RHYTHM ECG NO PREVIOUS TRACING DOCTOR: Scottie Cantor Interpretating Date/Time 01/22/2017 21:37:30
== END 2017-01-22 23:43 ==
LOC: NEPE 16:43
DX: Z02.89 Encounter for other administrative examinations (principal); R07.9 Chest pain, unspecified; F19.10 Other psychoactive substance abuse, uncomplicated
CPT/HCPCS: 80048; 80307; 85025; 93005; 96372; 99284; J1200; J1630; J2060; J7030